=== PATIENT | male | born 1955 | race Caucasian/White ===

== ENCOUNTER 2017-06-06 11:14 | Inpatient (IN) | payer BC ==
[~2017-06-06] VITALS: Ht 182.9 cm; Wt 83.9 kg
--- NOTE | 2017-06-06 11:14 | NUR ---
HIGH BLOOD PRESSURE, NAUSEA, VOMITING X 5 DAYS S/P DENTAL PROCEDURE. NAD NOTED. PT AAO X4, AMB WITH STEADY GAIT. RR EVEN AND UNLABORED. VSS. PENDING MD VU.
[2017-06-06] MEDS ORDERED: FAMOTIDINE/PF INJ 20 MG/2 ML VIAL IV ONE ×2 (11:43→12:00)
[2017-06-06] MEDS ORDERED: ONDANSETRON HCL/PF 4 MG/2 ML VIAL ONE (11:43)
[2017-06-06 11:46] LABS: BASOPHILS # (AUTO) 0.2 /CMM (0.0-0.2); BASOPHILS % (AUTO) 3.2 % (0.0-2.0); EOSINOPHILS # (AUTO) 0.1 /CMM (0.0-0.7); EOSINOPHILS % (AUTO) 2.2 % (0.0-6.0); HEMATOCRIT 50 % (39-51); HEMOGLOBIN 16.9 g/dL (13.5-17.5); LYMPHOCYTES # (AUTO) 1.7 /CMM (0.8-4.8); LYMPHOCYTES % (AUTO) 26.4 % (20.0-44.0); MEAN CORPUSCULAR HEMOGLOBIN 34 PG (26.0-33.0); MEAN CORPUSCULAR HGB CONC 34 g/dl (31.0-36.0); MEAN CORPUSCULAR VOLUME 100 fL (80-96); MONOCYTES # (AUTO) 0.3 /CMM (0.1-1.30); MONOCYTES % (AUTO) 5.3 % (2.0-12.0); NEUTROPHILS # (AUTO) 4.3 /CMM (1.8-8.9); NEUTROPHILS % (AUTO) 62.9 % (43.0-81.0); PLATELET COUNT (AUTO) 164 /CMM (150-450); RDW COEFFICIENT OF VARIATION 11.6 (11.5-15.0); RED BLOOD CELL COUNT(AUTO) 4.98 MIL/uL (4.5-6.0); WHITE BLOOD COUNT (AUTO) 6.6 K/uL (4.3-11.0)
[2017-06-06] MEDS ORDERED: LORAZEPAM INJ 2 MG/ML VIAL ONE (11:50)
[2017-06-06] MEDS ORDERED: LORAZEPAM INJ 2 MG/ML VIAL IV ONE (12:00)
[2017-06-06] MEDS ORDERED: IV NS 0.9% 1,000 ML BAG IV ONE (12:00)
[2017-06-06] MEDS ORDERED: ONDANSETRON HCL/PF 4 MG/2 ML VIAL IVP ONE (12:00)
[2017-06-06 12:04] LABS: ALANINE AMINOTRANSFERASE 1247 U/L (12-78); ALBUMIN 4.1 g/dL (3.4-5.0); ALKALINE PHOSPHATASE 87 U/L (46-116); ASPARTATE AMINOTRANSFERASE 480 U/L (15-37); BILIRUBIN,DIRECT 0.3 mg/dL (0.0-0.2); BILIRUBIN,TOTAL 1.5 mg/dL (0.2-1.0); CALCIUM, SERUM 8.5 mg/dL (8.5-10.1); CARBON DIOXIDE 25 mmol/L (21-32); CHLORIDE 101 mmol/L (98-107); CREATININE 1.2 mg/dL (0.6-1.3); GLUCOSE 143 mg/dL (74-106); LIPASE 156 U/L (73-393); POTASSIUM 4.1 mmol/L (3.5-5.1); SODIUM SERUM 136 mmol/L (136-145); TOTAL PROTEIN, SERUM 6.8 g/dL (6.4-8.2); UREA NITROGEN, BLOOD 17 mg/dL (7-18)
[2017-06-06 12:05] LABS: TROPONIN I < 0.017 ng/mL (0.00-0.056)
--- NOTE | 2017-06-06 12:06 | NUR ---
PT BACK FROM CT
--- NOTE | 2017-06-06 13:06 | NUR ---
BUILDING PERFORMANCE CONSULTANT AT BEDSIDE
[2017-06-06] MEDS ORDERED: ATOR20TA PO (14:10)
[2017-06-06] MEDS ORDERED: ALLO100T PO (14:10)
[2017-06-06] MEDS ORDERED: IV NS 0.9% 1,000 ML IV PRN (14:32)
[2017-06-06 15:00] VITALS: BP 145/87
[2017-06-06] MEDS ORDERED: LEVOFLOXACIN 500 MG /D5W 100ML 500 MG in PREMIX 1 EA IV SCH (15:00)
[2017-06-06] MEDS ORDERED: ONDANSETRON HCL/PF 4 MG/2 ML VIAL IVP PRN (15:00)
[2017-06-06] MEDS ORDERED: MAGNESIUM HYDROXIDE 30 ML UDC PO PRN (15:00)
[2017-06-06] MEDS ORDERED: Z GUARD REMEDY 2 OZ OINT TP PRN (15:00)
[2017-06-06] MEDS ORDERED: HYDROCODONE/APAP 5/325MG 1 EACH TABLET PO PRN (15:00)
[2017-06-06] MEDS ORDERED: ZOLPIDEM TARTRATE 5 MG TABLET PO PRN (15:00)
[2017-06-06] MEDS ORDERED: MAG HYDROX/AL HYDROX/SIMETH 30 ML UDC PO PRN (15:00)
--- NOTE | 2017-06-06 15:00 | NUR ---
MS NETWORK CABLE INSTALLER NOTE PATIENT IS ALERT AND ORIENTED x4. PATIENT STATES NO PAIN AT THIS TIME. NO SOB OR DISTRESS NOTED. ON ROOM AIR WITH 02 SATURATION OF 100%. AMBULATORY, STEADY. IV INTACT AND PATENT NO REDNESS OR SWELLING NOTED, RIGHT AC 18G. NO FLUIDS AT THIS TIME. ABLE TO COMMUNICATE NEEDS, SPEAKS LUX[place]OURGISH. CAME FROM ER VIA [facility]NEY FOR INTRACTABLE N/V. NO EPISODES OF NAUSEA OR VOMITING PRESENT WHEN ADMITTED ON FLOOR. ALL BELONGINGS DOCUMENTED. FAMILY AT BEDSIDE. MED RECON TO BE DONE BY , WILL INFORM. CALL LIGHT WITHIN REACH, SAFETY MEASURES IMPLEMENTED. WILL CONTINUE TO MONITOR THROUGHOUT SHIFT.
[2017-06-06] MEDS: PANTOPRAZOLE 40 MG TABLET.DR PO SCH (15:48)
--- NOTE | 2017-06-06 18:40 | NUR ---
MS RN CLOSING NOTE PATIENT IS ALERT AND ORIENTED x4. NO PAIN AT THIS TIME. NO SOB OR DISTRESS NOTED. NO EPISODES OF NAUSEA OR VOMITING NOTED. ABLE TO COMMUNICATE NEEDS. IV INTACT AND PATENT NO REDNESS OR SWELLING NOTED, FLUSHES WELL. ALL DUE MEDICATIONS GIVEN ORDERED. AMBULATORY. MED RECON DONE. WILL ENDORSE TO [employer] ARC NURSE
[2017-06-06 20:25] VITALS: BP 157/89
[2017-06-06 20:38] LABS: ALCOHOL, BLOOD < 3 mg/dL (0-0)
[2017-06-06 20:40] LABS: SALICYLATE 1.8 mg/dL (2.8-20.0)
[2017-06-06 20:41] LABS: ACETAMINOPHEN < 2 ug/ml (10-30)
--- NOTE | 2017-06-06 22:31 | NUR ---
ms/rn opening notes Patient awake, alert, x3. able to verbalize needs and ambulates independently. no nausea or discomfort reported. Attend to needs. Drinks fluids and provided needs. skin warm to touch, respiration even and unlabored will continue to monitor. Denies any pain. Bed in lock position.
[2017-06-06 22:34] VITALS: BP 157/89
[2017-06-07 00:04] VITALS: BP 161/86
--- NOTE | 2017-06-07 05:36 | NUR ---
326-1 MS/RN CLOSING NOTES PATIENT SITTING IN BED, AWAKE, ALERT X4. DENIES ANY PAIN. ABLE TO AMBULATE INDEPENDENTLY, SLEPT ATLEAST 9 HOURS. PATIENT REQUESTIN IV TO BE REMOVE PATIENT ABLE TO DRINK FLUID, PREFER NOT TO HAVE IV FLUID PATIENT CAN DRINK FLUIDS. STATED BY PATIETNT WILL CONTINUE TO MONITOR AND WILL ENDORSE TO AM RN PLAN OF CARE.
[2017-06-07 06:33] LABS: BASOPHILS % (AUTO) 0.7 % (0.0-2.0); EOSINOPHILS # (AUTO) 0.2 /CMM (0.0-0.7); EOSINOPHILS % (AUTO) 4.6 % (0.0-6.0); HEMATOCRIT 44 % (39-51); HEMOGLOBIN 15.2 g/dL (13.5-17.5); LYMPHOCYTES % (AUTO) 40.5 % (20.0-44.0); MEAN CORPUSCULAR HEMOGLOBIN 35 PG (26.0-33.0); MEAN CORPUSCULAR HGB CONC 35 g/dl (31.0-36.0); MEAN CORPUSCULAR VOLUME 100 fL (80-96); MONOCYTES # (AUTO) 0.5 /CMM (0.1-1.30); MONOCYTES % (AUTO) 9.2 % (2.0-12.0); NEUTROPHILS # (AUTO) 2.2 /CMM (1.8-8.9); PLATELET COUNT (AUTO) 132 /CMM (150-450); RDW COEFFICIENT OF VARIATION 12.3 (11.5-15.0); RED BLOOD CELL COUNT(AUTO) 4.39 MIL/uL (4.5-6.0); WHITE BLOOD COUNT (AUTO) 4.9 K/uL (4.3-11.0)
[2017-06-07 07:08] LABS: ALBUMIN 3.7 g/dL (3.4-5.0); ALKALINE PHOSPHATASE 85 U/L (46-116); BILIRUBIN,TOTAL 2.5 mg/dL (0.2-1.0); CALCIUM, SERUM 8.3 mg/dL (8.5-10.1); CARBON DIOXIDE 26 mmol/L (21-32); CHLORIDE 101 mmol/L (98-107); CREATININE 1.2 mg/dL (0.6-1.3); GLUCOSE 113 mg/dL (74-106); MAGNESIUM 1.7 mg/dL (1.8-2.4); PHOSPHORUS 2.9 mg/dL (2.5-4.9); POTASSIUM 3.6 mmol/L (3.5-5.1); SODIUM SERUM 135 mmol/L (136-145); TOTAL PROTEIN, SERUM 6.4 g/dL (6.4-8.2); UREA NITROGEN, BLOOD 13 mg/dL (7-18)
[2017-06-07 07:11] LABS: CHOLESTEROL 122 mg/dL (<200); LDL 28 mg/dL (0-99); TRIGLYCERIDES 677 mg/dL (30-150)
[2017-06-07 07:17] LABS: ASPARTATE AMINOTRANSFERASE 1094 U/L (15-37)
--- NOTE | 2017-06-07 07:30 | NUR ---
MS RN OPENING NOTE PATIENT IS ALERT AND ORIENTED x4. NO PAIN AT THIS TIME. NO SOB OR DISTRESS NOTED. CALL LIGHT WITHIN REACH. SAFETY MEASURES IMPLEMENTED. IV INTACT AND PATENT NO REDNESS OR SWELLING, REFUSING IV FLUIDS. ABLE TO COMMUNICATE NEEDS. PATIENT STATED HE WANTS TO SPEAK WITH DOCTOR AND GO HOME. WILL CONTINUE TO MONITOR
[2017-06-07 07:45] LABS: HDL CHOLESTEROL < 10 mg/dL (40-60)
[2017-06-07 07:50] LABS: ALANINE AMINOTRANSFERASE 1175 U/L (12-78)
[2017-06-07] MEDS: PANTOPRAZOLE 40 MG TABLET.DR PO SCH (08:50)
--- NOTE | 2017-06-07 10:12 | NUR ---
MS TECHNICAL CLERK NOTE PATIENT IS ALERT AND ORIENTED x4. NO PAIN AT THIS TIME. NO SOB OR DISTRESS NOTED. CALL LIGHT WITHIN REACH AT ALL TIMES. SAFETY MEASURES IMPLEMENTED. ABLE TO COMMUNICATE NEEDS. AMBULATORY. ALL DUE MEDICATIONS GIVEN ORDERED. NOTIFIED PATIENT ABOUT MAGNESIUM-1.7 AND WILL NEED TO BE REPLACE, PATIENT REFUSED. ALL DISCHARGE INSTRUCTIONS GIVEN TO PATIENT, VERBALIZATION FROM PATIENT RECEIVED, TEACH BACK RECEIVED FROM PATIENT. ALL BELONGINGS DOCUMENTED. SKIN INTACT NO WOUNDS OR SKIN ISSUES PRESENT. LEFT VIA PRIVATE CAR WITH AND DAUGHTERS.
== END 2017-06-07 09:50 | disposition home or self-care (01) | DRG 442 ==
LOC: ER 11:17 → MED 14:25
PROVIDERS: ADMIT Internal Medicine; ATTEND Internal Medicine
DX: K76.0 Fatty (change of) liver, not elsewhere classified (principal); E87.1 Hypo-osmolality and hyponatremia; E78.5 Hyperlipidemia, unspecified; M10.9 Gout, unspecified; Z96.642 Presence of left artificial hip joint; F10.21 Alcohol dependence, in remission; Z87.891 Personal history of nicotine dependence
CPT/HCPCS: 36415; 71010-TC; 71250-TC; 76705-TC; 80048-TC; 80053-TC; 80061-TC; 80076-TC; 83690-TC; 83735-TC; 84100-TC; 84484-TC; 85025-TC; 87081-TC; A4216; A4606; G0480; J1956; J2060; J2405; J3490; J7030; Z7610